=== PATIENT | female | born 1950 | race African-American/Black ===

== ENCOUNTER 2016-12-18 09:20 | Inpatient (IN) | payer OTHER ==
[~2016-12-18] VITALS: Ht 157.5 cm; Wt 81.9 kg
[~2016-12-18 09:20] MED LIST: AMLODIPINE BESY10 MG PO; AMLODIPINE BESYL5 MG PO; ANTIVERT25 MG PO; ASPIR 8181 M1 PO; ASPIR-LOW81 MG PO; ASPIRIN EC325 MG PO; CEFTIN500 MG PO; DULCOLAX10 MG PR; GLUCOPHAGE1000 MG PO; GLUCOPHAGE500 MG PO; HEPARIN SO5000 UNITS SC; HYDROCHLOROTHIA25 MG PO; KEPPRA500 MG PO; LATANOPROST2.5 ML BOTH EYES; LEVEMIR FL100 UNIT/1 SC; LIPITOR40 MG PO; LO-DOSE ASPIRIN81 M1 PO; LOPRESSOR25 MG PO; METFORMIN HCL1000 M1 PO; METFORMIN HCL1000 MG PO; METFORMIN HCL500 MG PO; METROCREAM45 GM TP; MONOPRIL10 MG PO; MONOPRIL20 MG PO; MONOPRIL40 MG PO; NORVASC10 MG PO; NYSTATIN15 GM TP; PRAVACHOL10 MG PO; PRAVACHOL80 MG PO; PRAVASTATIN SOD80 MG PO; PROCHLORPERAZIN10 MG PO; SENNA PLUS TAB1 EACH PO; TOPROL XL25 MG PO; TRAVATAN Z5 ML BOTH EYES; TRUSOPT5 ML BOTH EYES; TYLENOL REGULA325 MG PO; XALATAN2.5 ML BOTH EYES; ZONISAMIDE100 MG PO
[2016-12-18 11:00] LABS: EOSINOPHIL (%) 0 % (0-5); HEMATOCRIT 40.4 % (36.0-46.0); IMMATURE GRANULOCYTE (%) 0.1 % (0.0-0.7); IMMATURE GRANULOCYTE COUNT 0.2 K/uL; LYMPHOCYTE COUNT 0.7 K/uL (1.0-2.8); MCH 28.6 PG (29.0-34.0); MCHC 33.2 G/DL (30.0-36.0); MCV 86.3 FL (83-99); MEAN PLAT.VOLUME 12.2 uM^3 (9.5-12.4); MONOCYTE (%) 4.3 % (3-12); MONOCYTE COUNT 0.6 K/uL (0-0.8); NEUTROPHIL (%) 90.7 % (45-76); NEUTROPHIL COUNT 12.7 K/uL (1.8-6.4); PLATELET COUNT 175 K/uL (156-360); RBC DIS.WIDTH-CV 12.3 % (11.8-14.6); RBC DIS.WIDTH-SD 38.2 % (39-53); RED BLOOD COUNT 4.68 M/uL (3.80-5.20)
[2016-12-18 11:13] LABS: CHLORIDE 106 mEq/L (99-109); POTASSIUM 4.1 mEq/L (3.7-5.4); SODIUM 141 mEq/L (136-147)
[2016-12-18 11:16] LABS: GLUCOSE 150 mg/dL (70-99)
[2016-12-18 11:17] LABS: ANION GAP 15 MEQ/L (2-14); TOTAL BILIRUBIN 0.5 mg/dL (0.0-1.0)
[2016-12-18 11:19] LABS: ALKALINE PHOSPHATASE 82 IU/L (3-129); GFR ESTIMATE (CALCULATED) > 59 mL/min/
[2016-12-18 11:20] LABS: ADD MIUA? YES; BILIRUBIN NEGATIVE; BLOOD TRACE; COLOR PALE YELLOW ((YELLOW)); GLUCOSE (STRIP) NEGATIVE; KETONES NEGATIVE; LEUKOCYTES NEGATIVE; NITRITE NEGATIVE; PROTEIN (STRIP) NEGATIVE; UROBILINOGEN 0.2 MG/DL (0.2-1.0)
[2016-12-18 11:20] LABS: UREA NITROGEN (BUN) 6 mg/dL (9-23)
[2016-12-18 11:22] LABS: CREATINE KINASE 135 IU/L (1-294)
[2016-12-18 11:36] LABS: EPITHELIAL CELLS RARE; MUCUS NONE SEEN; RED BLOOD CELLS RARE /HPF (0-5); WHITE BLOOD CELLS NONE SEEN /HPF (0-5)
[2016-12-18 11:37] LABS: BACTERIA RARE; CASTS NONE SEEN /LPF; CRYSTALS NONE SEEN; UCUL ADDED? NO
[2016-12-18 15:56] LABS: Estimated Average Glucose 128 mg/dL (70-123); HEMOGLOBIN A1c (GLYCOHEMOGLOB) 6.1 % HGB (Below 5.7)
[2016-12-18 20:07] VITALS: BP 145/71
[2016-12-18 21:00] VITALS: BP 145/71
[2016-12-18 23:57] VITALS: BP 137/79
[2016-12-19 04:14] VITALS: BP 141/73
[2016-12-19 07:02] LABS: ANION GAP 11 MEQ/L (2-14); CHLORIDE 107 MEQ/L (99-109); GFR ESTIMATE (CALCULATED) > 59 mL/min/; POTASSIUM 3.6 MEQ/L (3.7-5.4); SAMPLE HEMOLYSIS CHECK 0; SAMPLE ICTERIC CHECK 0; SAMPLE LIPEMIA CHECK 0; SODIUM 143 MEQ/L (136-147); UREA NITROGEN (BUN) 7 mg/dL (9-23)
[2016-12-19 07:03] LABS: GLUCOSE 91 mg/dL (70-99)
[2016-12-19 07:07] LABS: HEMATOCRIT 36.8 % (36.0-46.0); MCH 27.9 PG (29.0-34.0); MCHC 32.3 G/DL (30.0-36.0); MCV 86.2 FL (83-99); MEAN PLAT.VOLUME 11.8 uM^3 (9.5-12.4); PLATELET COUNT 175 K/uL (156-360); RBC DIS.WIDTH-CV 12.5 % (11.8-14.6); RBC DIS.WIDTH-SD 39.4 % (39-53); RED BLOOD COUNT 4.27 M/uL (3.80-5.20); WHITE BLOOD COUNT 8.1 K/uL (4.1-10.2)
[2016-12-19 07:49] VITALS: BP 171/70
[2016-12-19 11:29] VITALS: BP 137/56
[2016-12-19 12:27] LABS: MAGNESIUM 1.3 mg/dl (1.3-2.7)
[2016-12-19 15:57] VITALS: BP 111/54
[2016-12-19 19:23] VITALS: BP 113/53
[2016-12-19 23:34] VITALS: BP 126/59
[2016-12-20 04:32] VITALS: BP 119/57
[2016-12-20 08:00] VITALS: BP 126/66
[2016-12-20 12:16] VITALS: BP 120/76
[2016-12-20 15:39] VITALS: BP 164/76
[2016-12-20 20:00] VITALS: BP 159/88
[2016-12-20 23:52] VITALS: BP 180/90
[2016-12-21 01:08] VITALS: BP 124/60
[2016-12-21 04:23] VITALS: BP 157/85
[2016-12-21 07:42] VITALS: BP 168/88
[2016-12-21 08:42] LABS: HEMATOCRIT 41.6 % (36.0-46.0); MCHC 32.5 G/DL (30.0-36.0); MCV 86.1 FL (83-99); MEAN PLAT.VOLUME 12.4 uM^3 (9.5-12.4); PLATELET COUNT 187 K/uL (156-360); RBC DIS.WIDTH-CV 12.6 % (11.8-14.6); RBC DIS.WIDTH-SD 39.6 % (39-53); RED BLOOD COUNT 4.83 M/uL (3.80-5.20); WHITE BLOOD COUNT 7.5 K/uL (4.1-10.2)
[2016-12-21 09:01] LABS: ANION GAP 11 MEQ/L (2-14); CHLORIDE 106 MEQ/L (99-109); SAMPLE HEMOLYSIS CHECK 0; SAMPLE ICTERIC CHECK 0; SAMPLE LIPEMIA CHECK 0; SODIUM 141 MEQ/L (136-147)
[2016-12-21 09:07] LABS: GFR ESTIMATE (CALCULATED) > 59 mL/min/; GLUCOSE 122 mg/dL (70-99); UREA NITROGEN (BUN) 7 mg/dL (9-23)
[2016-12-21 11:59] LABS: POINT-OF-CARE METER ID UU14174225
[2016-12-21] MEDS ORDERED: ASPIR 8181 M1 PO (12:05)
[2016-12-21] MEDS ORDERED: PRAVACHOL80 MG PO (12:05)
[2016-12-21] MEDS ORDERED: HYDROCHLOROTHIA25 MG PO (12:06)
[2016-12-21] MEDS ORDERED: MELOXICAM7.5 MG PO (12:06)
[2016-12-21] MEDS ORDERED: FOSINOPRIL SODI40 MG PO (12:07)
[2016-12-21] MEDS ORDERED: NORVASC10 MG PO (12:07)
[2016-12-21] MEDS ORDERED: METFORMIN HCL500 MG PO (12:08)
[2016-12-21] MEDS ORDERED: LEVETIRACETAM500 MG PO (12:41)
[2016-12-21] MEDS ORDERED: POLYETHYLENE GL17 GM PO ×2 (12:41→12:57)
== END 2016-12-21 13:40 | DRG 100 ==
LOC: EME → EDBD 09:20 → EDOF 12:11 → 5SOUTH 15:13
PROVIDERS: Emergency Medicine; Hospitalist; Internal Medicine; Physician Assistant; Student in an Organized Health Care Education/Training Program
DX: G40.909 Epilepsy, unspecified, not intractable, without status epilepticus (principal); G93.40 Encephalopathy, unspecified; E87.2 Acidosis; I10 Essential (primary) hypertension; E11.9 Type 2 diabetes mellitus without complications; I25.10 Atherosclerotic heart disease of native coronary artery without angina pectoris; R41.82 Altered mental status, unspecified; Z86.73 Personal history of transient ischemic attack (TIA), and cerebral infarction without residual deficits; Z91.14 Patient's other noncompliance with medication regimen
CPT/HCPCS: 70450; 71010; 80048; 80053; 81003; 82550; 82550 91; 82948; 83036; 83605; 83735; 85025; 85027; 87040; 92523 GN; 93005; 94799; 95819; 97530 GO; 99281; 99285; J0360; J0692; J1644; J1815; J1953; J2250; J3370; J3475; J7030; J7050

== ENCOUNTER 2016-12-21 11:34 | Inpatient (IN) | payer OTHER ==
[~2016-12-21] VITALS: Ht 157.5 cm; Wt 77.4 kg
[2016-12-21] MEDS ORDERED: PRAVACHOL80 MG PO (12:05)
[2016-12-21] MEDS ORDERED: ASPIR 8181 M1 PO (12:05)
[2016-12-21] MEDS ORDERED: MELOXICAM7.5 MG PO (12:06)
[2016-12-21] MEDS ORDERED: HYDROCHLOROTHIA25 MG PO (12:06)
[2016-12-21] MEDS ORDERED: NORVASC10 MG PO (12:07)
[2016-12-21] MEDS ORDERED: FOSINOPRIL SODI40 MG PO (12:07)
[2016-12-21] MEDS ORDERED: METFORMIN HCL500 MG PO (12:08)
[2016-12-21] MEDS ORDERED: LEVETIRACETAM500 MG PO (12:41)
[2016-12-21] MEDS ORDERED: POLYETHYLENE GL17 GM PO ×2 (12:41→12:57)
[2016-12-21 14:17] VITALS: BP 174/74
[2016-12-21 16:43] VITALS: BP 139/60
[2016-12-21 16:44] LABS: POINT-OF-CARE METER ID UU13113720
[2016-12-21 21:50] LABS: POINT-OF-CARE METER ID UU13113720
[2016-12-21 23:46] VITALS: BP 159/72
[2016-12-22 05:40] VITALS: BP 136/65
[2016-12-22 06:13] LABS: ALKALINE PHOSPHATASE 62 IU/L (3-129); ANION GAP 11 MEQ/L (2-14); CHLORIDE 106 MEQ/L (99-109); GFR ESTIMATE (CALCULATED) > 59 mL/min/; GLUCOSE 99 mg/dL (70-99); POTASSIUM 3.8 MEQ/L (3.7-5.4); SAMPLE HEMOLYSIS CHECK 0; SAMPLE ICTERIC CHECK 0; SAMPLE LIPEMIA CHECK 0; SODIUM 143 MEQ/L (136-147); TOTAL BILIRUBIN 0.7 MG/DL (0.0-1.0); UREA NITROGEN (BUN) 12 mg/dL (9-23)
[2016-12-22 07:08] LABS: HEMATOCRIT 37.4 % (36.0-46.0); MCH 28.8 PG (29.0-34.0); MCHC 33.4 G/DL (30.0-36.0); MCV 86.2 FL (83-99); RBC DIS.WIDTH-CV 12.5 % (11.8-14.6); RBC DIS.WIDTH-SD 39.5 % (39-53); RED BLOOD COUNT 4.34 M/uL (3.80-5.20)
[2016-12-22 07:44] LABS: MEAN PLAT.VOLUME 13.2 uM^3 (9.5-12.4); PLATELET COUNT 173 K/uL (156-360)
[2016-12-22 07:49] LABS: POINT-OF-CARE METER ID UU14174215
[2016-12-22 11:53] LABS: POINT-OF-CARE METER ID UU14174215
[2016-12-22 15:38] VITALS: BP 122/56
[2016-12-22 16:25] LABS: POINT-OF-CARE METER ID UU14174215
[2016-12-22 20:38] LABS: POINT-OF-CARE METER ID UU14174215
[2016-12-23 04:54] VITALS: BP 111/57
[2016-12-23 08:05] LABS: POINT-OF-CARE METER ID UU13113712
[2016-12-23 08:37] VITALS: BP 125/60
[2016-12-23 11:55] LABS: POINT-OF-CARE METER ID UU13113712
[2016-12-23 15:44] VITALS: BP 114/58
[2016-12-23 16:31] LABS: POINT-OF-CARE METER ID UU14174215
[2016-12-23 21:23] LABS: POINT-OF-CARE METER ID UU13113720
[2016-12-24 04:00] VITALS: BP 140/63
[2016-12-24 08:04] LABS: POINT-OF-CARE METER ID UU14174215
[2016-12-24 11:48] LABS: POINT-OF-CARE METER ID UU14174215
[2016-12-24 15:00] VITALS: BP 102/53
[2016-12-24 16:30] LABS: POINT-OF-CARE METER ID UU14174215
[2016-12-24 21:18] LABS: POINT-OF-CARE METER ID UU14174215
[2016-12-25 05:23] VITALS: BP 112/59
[2016-12-25 07:05] LABS: POINT-OF-CARE METER ID UU14174215
[2016-12-25 08:43] VITALS: BP 147/70
[2016-12-25 11:38] LABS: POINT-OF-CARE METER ID UU13113720; POINT-OF-CARE USER ID ENVGAF
[2016-12-25 15:14] VITALS: BP 121/57
[2016-12-25 16:22] LABS: POINT-OF-CARE METER ID UU13113720
[2016-12-26 05:08] VITALS: BP 146/63
[2016-12-26 07:23] LABS: POINT-OF-CARE METER ID UU13113720; POINT-OF-CARE USER ID ENVGAF
[2016-12-26 15:09] VITALS: BP 120/57
[2016-12-26] MEDS ORDERED: LOVENOX40 MG/0.4 SC (15:16)
[2016-12-26] MEDS ORDERED: SENNA PLUS TAB1 EACH PO (15:17)
[2016-12-26] MEDS ORDERED: LATANOPROST2.5 ML BOTH EYES (15:17)
[2016-12-26] MEDS ORDERED: LIDOCAINE700 MG TD (15:17)
[2016-12-26 16:17] LABS: POINT-OF-CARE METER ID UU13113720
[2016-12-27 05:08] VITALS: BP 122/57
[2016-12-27 07:36] LABS: POINT-OF-CARE METER ID UU13113720
== END 2016-12-27 14:34 | DRG 555 ==
LOC: 3WEST 11:34
PROVIDERS: Physical Medicine & Rehabilitation Pain Medicine
PROC: F07M0ZZ Range of Motion and Joint Mobility Treatment of Musculoskeletal System - Whole Body (ICD-10-PCS; principal; 2016-12-21)
DX: R26.2 Difficulty in walking, not elsewhere classified (principal); G93.40 Encephalopathy, unspecified; G40.909 Epilepsy, unspecified, not intractable, without status epilepticus; Z91.19 Patient's noncompliance with other medical treatment and regimen; M17.11 Unilateral primary osteoarthritis, right knee; D72.829 Elevated white blood cell count, unspecified; E78.00 Pure hypercholesterolemia, unspecified; E11.9 Type 2 diabetes mellitus without complications; I10 Essential (primary) hypertension; H40.9 Unspecified glaucoma; I25.10 Atherosclerotic heart disease of native coronary artery without angina pectoris; D64.9 Anemia, unspecified; M54.5 Low back pain; Z86.73 Personal history of transient ischemic attack (TIA), and cerebral infarction without residual deficits; Z95.5 Presence of coronary angioplasty implant and graft
CPT/HCPCS: 73564; 80053; 82948; 85027; 96125 GN; 97110 GO; 97530 GP; 97532 GN; J1650

== ENCOUNTER 2017-04-29 10:56 | Emergency (ER) | payer OTHER ==
[~2017-04-29] VITALS: Ht 157.5 cm; Wt 83.5 kg
[~2017-04-29 10:56] MED LIST changes: +FOSINOPRIL SODI40 MG PO; +LEVETIRACETAM500 MG PO; +LIDOCAINE700 MG TD; +LOVENOX40 MG/0.4 SC; +MELOXICAM7.5 MG PO; +POLYETHYLENE GL17 GM PO
[2017-04-29 12:30] LABS: EOSINOPHIL (%) 0.1 % (0-5); HEMATOCRIT 36.9 % (36.0-46.0); IMMATURE GRANULOCYTE (%) 0.2 % (0.0-0.7); INSTRUMENT ABS NEUTROPHIL CT 7.1 K/uL; MCH 28.1 PG (29.0-34.0); MCHC 32.8 G/DL (30.0-36.0); MCV 85.8 FL (83-99); MEAN PLAT.VOLUME 10.7 uM^3 (9.5-12.4); MONOCYTE (%) 5.8 % (3-12); MONOCYTE COUNT 0.5 K/uL (0-0.8); NEUTROPHIL (%) 82.1 % (45-76); NEUTROPHIL COUNT 7.1 K/uL (1.8-6.4); PLATELET COUNT 203 K/uL (156-360); RBC DIS.WIDTH-CV 12.5 % (11.8-14.6); RBC DIS.WIDTH-SD 39.2 % (39-53)
[2017-04-29 12:31] LABS: WHITE BLOOD COUNT 8.6 K/uL (4.1-10.2)
[2017-04-29 12:37] LABS: CHLORIDE 107 mEq/L (99-109); POTASSIUM 4.3 mEq/L (3.7-5.4); SODIUM 143 mEq/L (136-147)
[2017-04-29 12:39] LABS: GLUCOSE 124 mg/dL (70-99)
[2017-04-29 12:41] LABS: ANION GAP 11 MEQ/L (2-14)
[2017-04-29 12:43] LABS: GFR ESTIMATE (CALCULATED) > 59 mL/min/
[2017-04-29 12:44] LABS: UREA NITROGEN (BUN) 12 mg/dL (9-23)
[2017-04-29 15:25] LABS: ADD MIUA? YES; BILIRUBIN NEGATIVE; BLOOD SMALL; COLOR STRAW ((YELLOW)); GLUCOSE (STRIP) NEGATIVE; KETONES NEGATIVE; LEUKOCYTES NEGATIVE; NITRITE NEGATIVE; PROTEIN (STRIP) NEGATIVE; UROBILINOGEN 0.2 MG/DL (0.2-1.0)
[2017-04-29 15:42] LABS: BACTERIA NONE SEEN /HPF; EPITHELIAL CELLS NONE SEEN /HPF; MUCUS TRACE /LPF; RED BLOOD CELLS 0-5 /HPF (0-5); UCUL ADDED? NO; WHITE BLOOD CELLS 15-20 /HPF (0-5)
[2017-04-29 18:40] VITALS: BP 163/69
== END 2017-04-29 18:40 | disposition home or self-care (01) ==
LOC: EME 10:56
PROVIDERS: Emergency Medicine
DX: N39.0 Urinary tract infection, site not specified (principal); Z04.3 Encounter for examination and observation following other accident; E78.5 Hyperlipidemia, unspecified; I10 Essential (primary) hypertension; E11.9 Type 2 diabetes mellitus without complications; I69.854 Hemiplegia and hemiparesis following other cerebrovascular disease affecting left non-dominant side; Z98.61 Coronary angioplasty status; Z79.82 Long term (current) use of aspirin
CPT/HCPCS: 70450; 80048; 81003; 85025; 99281; 99283; G8978 GP CJ; G8979 GP CH; G8987 GO CJ; G8988 GO CH

== ENCOUNTER 2017-08-16 10:43 | Emergency (ER) | payer OTHER ==
[~2017-08-16] VITALS: Ht 154.9 cm; Wt 86.4 kg
[2017-08-16 12:42] LABS: ADD MIUA? YES; BILIRUBIN NEGATIVE; BLOOD NEGATIVE; COLOR YELLOW ((YELLOW)); GLUCOSE (STRIP) NEGATIVE; KETONES NEGATIVE; LEUKOCYTES SMALL; NITRITE NEGATIVE; PROTEIN (STRIP) 30; SPECIFIC GRAVITY 1.011 (1.000-1.030)
[2017-08-16 12:50] LABS: BACTERIA RARE /HPF; EPITHELIAL CELLS 4+ /HPF; MUCUS NONE SEEN /LPF; RED BLOOD CELLS 0-5 /HPF (0-5)
[2017-08-16 12:58] LABS: POINT-OF-CARE METER ID UU13113747
[2017-08-16] MEDS ORDERED: MACROBID100 MG PO (13:34)
[2017-08-16 14:04] VITALS: BP 163/66
== END 2017-08-16 14:16 | disposition home or self-care (01) ==
LOC: EME → EDBD 10:43 → EME 10:43
PROVIDERS: Emergency Medicine
DX: N39.0 Urinary tract infection, site not specified (principal); I48.91 Unspecified atrial fibrillation; Z91.81 History of falling; E78.5 Hyperlipidemia, unspecified; I10 Essential (primary) hypertension; E11.9 Type 2 diabetes mellitus without complications; M19.90 Unspecified osteoarthritis, unspecified site; R56.9 Unspecified convulsions; I69.354 Hemiplegia and hemiparesis following cerebral infarction affecting left non-dominant side; Z95.5 Presence of coronary angioplasty implant and graft; Z79.82 Long term (current) use of aspirin
CPT/HCPCS: 81003; 82948; 93005; 99281; 99285

== ENCOUNTER 2017-10-24 10:57 | Observation (INO) | payer OTHER ==
[~2017-10-24] VITALS: Ht 170.2 cm; Wt 86.7 kg
[~2017-10-24 10:57] MED LIST changes: +MACROBID100 MG PO
[2017-10-24 12:27] LABS: HEMATOCRIT 38.8 % (36.0-46.0); MCH 28.2 PG (29.0-34.0); MCHC 33.2 G/DL (30.0-36.0); MCV 84.7 FL (83-99); MEAN PLAT.VOLUME 11.6 uM^3 (9.5-12.4); PLATELET COUNT 212 K/uL (156-360); RBC DIS.WIDTH-CV 13.3 % (11.8-14.6); RBC DIS.WIDTH-SD 41.4 % (39-53); RED BLOOD COUNT 4.58 M/uL (3.80-5.20); WHITE BLOOD COUNT 10.9 K/uL (4.1-10.2)
[2017-10-24 12:31] LABS: INTER. NORMALIZED RATIO 1.1; PROTHROMBIN TIME 12.7 SEC (10.2-12.9)
[2017-10-24 12:34] LABS: CHLORIDE 109 mEq/L (99-109); POTASSIUM 3.6 mEq/L (3.7-5.4); PTT 25.8 SEC (25-37); SODIUM 139 mEq/L (136-147)
[2017-10-24 12:36] LABS: GLUCOSE 115 mg/dL (70-99)
[2017-10-24 12:37] LABS: ANION GAP 8 MEQ/L (2-14)
[2017-10-24 12:40] LABS: GFR ESTIMATE (CALCULATED) > 59 mL/min/; UREA NITROGEN (BUN) 9 mg/dL (9-23)
[2017-10-24 12:46] LABS: TROP-I INTERPRETATION NEGATIVE; TROPONIN-I 0.04 ng/mL (0.0-0.30)
[2017-10-24 13:32] LABS: ADD MIUA? YES; BILIRUBIN NEGATIVE; BLOOD SMALL; COLOR YELLOW ((YELLOW)); GLUCOSE (STRIP) NEGATIVE; KETONES NEGATIVE; LEUKOCYTES TRACE; NITRITE NEGATIVE; PROTEIN (STRIP) NEGATIVE; SPECIFIC GRAVITY 1.009 (1.000-1.030)
[2017-10-24 13:35] LABS: BACTERIA 2+ /HPF; EPITHELIAL CELLS RARE /HPF; MUCUS TRACE /LPF; RED BLOOD CELLS 0-5 /HPF (0-5); UCUL ADDED? YES; WHITE BLOOD CELLS 0-5 /HPF (0-5)
[2017-10-24 15:18] LABS: CREATINE KINASE 868 IU/L (1-294)
[2017-10-24] MEDS ORDERED: LISINOPRIL40 MG PO (16:25)
[2017-10-24] MEDS ORDERED: ATORVASTATIN CA20 MG PO (16:26)
[2017-10-24 16:50] VITALS: BP 208/93
[2017-10-24 18:21] LABS: TROP-I INTERPRETATION NEGATIVE; TROPONIN-I 0.03 ng/mL (0.0-0.30)
[2017-10-24 20:00] VITALS: BP 175/82
[2017-10-24 23:37] VITALS: BP 150/70
[2017-10-25 00:41] LABS: TROP-I INTERPRETATION NEGATIVE; TROPONIN-I 0.02 ng/mL (0.0-0.30)
[2017-10-25 03:45] VITALS: BP 144/67
[2017-10-25 05:49] LABS: ANION GAP 10 MEQ/L (2-14); CHLORIDE 107 MEQ/L (99-109); CREATINE KINASE 632 IU/L (1-294); GFR ESTIMATE (CALCULATED) > 59 mL/min/; GLUCOSE 128 mg/dL (70-99); POTASSIUM 3.9 MEQ/L (3.7-5.4); SAMPLE HEMOLYSIS CHECK 0; SAMPLE ICTERIC CHECK 0; SAMPLE LIPEMIA CHECK 0; SODIUM 141 MEQ/L (136-147); TOTAL CK 632 IU/L (1-294); UREA NITROGEN (BUN) 7 mg/dL (9-23)
[2017-10-25 06:17] LABS: CK-MB 4.6 ng/mL (0.0-4.9)
[2017-10-25 08:13] VITALS: BP 144/67
[2017-10-25 12:24] VITALS: BP 137/72
[2017-10-25 15:46] VITALS: BP 148/70
[2017-10-25 19:25] VITALS: BP 109/53
[2017-10-25 23:31] VITALS: BP 143/64
[2017-10-26 03:54] VITALS: BP 152/66
[2017-10-26 05:29] LABS: HEMATOCRIT 37.2 % (36.0-46.0); MCH 27.7 PG (29.0-34.0); MCHC 32.8 G/DL (30.0-36.0); MCV 84.4 FL (83-99); MEAN PLAT.VOLUME 11.4 uM^3 (9.5-12.4); PLATELET COUNT 197 K/uL (156-360); RBC DIS.WIDTH-CV 13.1 % (11.8-14.6); RBC DIS.WIDTH-SD 40.7 % (39-53); RED BLOOD COUNT 4.41 M/uL (3.80-5.20); WHITE BLOOD COUNT 6.7 K/uL (4.1-10.2)
[2017-10-26 06:02] LABS: ANION GAP 8 MEQ/L (2-14); CHLORIDE 107 MEQ/L (99-109); GFR ESTIMATE (CALCULATED) > 59 mL/min/; GLUCOSE 128 mg/dL (70-99); POTASSIUM 3.9 MEQ/L (3.7-5.4); SAMPLE HEMOLYSIS CHECK 0; SAMPLE ICTERIC CHECK 0; SAMPLE LIPEMIA CHECK 0; SODIUM 141 MEQ/L (136-147); UREA NITROGEN (BUN) 12 mg/dL (9-23)
[2017-10-26 08:50] VITALS: BP 143/69
[2017-10-26 11:17] VITALS: BP 123/59
[2017-10-26 15:15] VITALS: BP 124/60
[2017-10-26 19:48] VITALS: BP 116/55
[2017-10-26 23:42] VITALS: BP 139/63
[2017-10-27 04:11] VITALS: BP 138/66
[2017-10-27 16:33] VITALS: BP 123/60
[2017-10-27 19:10] VITALS: BP 101/49
[2017-10-28 00:12] VITALS: BP 125/60
[2017-10-28 04:15] VITALS: BP 121/56
[2017-10-28 07:27] VITALS: BP 139/65
[2017-10-28 11:37] VITALS: BP 150/67
[2017-10-28 16:02] VITALS: BP 123/59
[2017-10-28 19:20] VITALS: BP 152/65
[2017-10-29 00:23] VITALS: BP 139/65
[2017-10-29 04:00] VITALS: BP 151/64
[2017-10-29 07:15] VITALS: BP 143/72
[2017-10-29 07:20] VITALS: BP 143/72
[2017-10-29 11:25] VITALS: BP 127/59
[2017-10-29 15:04] VITALS: BP 132/60
== END 2017-10-29 16:38 ==
LOC: EME → EDBD 10:57 → EME 10:57 → EDOF 14:57 → 5WEST 14:57 → ENRESERV 15:07 → 5WEST 16:10
PROVIDERS: Emergency Medicine; Internal Medicine; Physician Assistant
DX: M62.82 Rhabdomyolysis (principal); W18.30XA Fall on same level, unspecified, initial encounter; Y92.009 Unspecified place in unspecified non-institutional (private) residence as the place of occurrence of the external cause; I10 Essential (primary) hypertension; E11.9 Type 2 diabetes mellitus without complications; G40.909 Epilepsy, unspecified, not intractable, without status epilepticus; R82.71 Bacteriuria; Z86.73 Personal history of transient ischemic attack (TIA), and cerebral infarction without residual deficits; I67.89 Other cerebrovascular disease; M25.552 Pain in left hip; Z79.82 Long term (current) use of aspirin; R07.89 Other chest pain; E87.6 Hypokalemia; R42 Dizziness and giddiness; E72.20 Disorder of urea cycle metabolism, unspecified; R41.0 Disorientation, unspecified
CPT/HCPCS: 70450; 70551; 71010; 73501; 80048; 81003; 82140; 82550; 82550 91; 82553; 84443; 84484; 85027; 85610; 85730; 87077; 87086; 87186; 93005; 97530 GP; 99281; 99285; G0378; G8978 GP CJ; G8979 GP CI; G8980 CJ; G8987 GO CJ; G8988 GO CH; G8989 CJ; J1650; J7120